=== PATIENT | male | born 1990 | race Caucasian/White ===

== ENCOUNTER 2019-05-29 22:56 | Emergency (ER) | payer OTHER ==
[~2019-05-29] VITALS: Ht 182.9 cm; Wt 81.7 kg
== END 2019-05-30 01:00 | disposition home or self-care (01) ==
LOC: ER 22:56
DX: S93.401A Sprain of unspecified ligament of right ankle, initial encounter (principal); X50.9XXA Other and unspecified overexertion or strenuous movements or postures, initial encounter; Z87.891 Personal history of nicotine dependence
CPT/HCPCS: 29515; 73590; 73610; 73630; 96374-59; 99283-25; A9270-GY; J1885

== ENCOUNTER 2021-07-15 13:13 | Emergency (ER) | payer OTHER ==
[~2021-07-15] VITALS: Ht 182.9 cm; Wt 86.2 kg
== END 2021-07-15 13:41 | disposition home or self-care (01) ==
LOC: ER 13:13
DX: K29.20 Alcoholic gastritis without bleeding (principal); Z87.891 Personal history of nicotine dependence
CPT/HCPCS: 99283